=== PATIENT | female | born 1985 | race Caucasian/White ===

== ENCOUNTER 2017-11-04 05:28 | Day surgery (SDC) | payer OTHER ==
[~2017-11-04] VITALS: Ht 167.6 cm; Wt 88.0 kg
--- NOTE | ~2017-11-04 | PATH ---
[facility] [place] [address] PATHOLOGY RPT PROCEDURE Name: ADRIANA CELAYA Alysia Room #: DEP [facility].#: [id number] Admission: 11/04/17 Date of : 83 Discharge: 11/04/17 Report #: [id number] Path Case #: [id number] [facility] Accession Number: [id number] . 01 Material submitted: . PART A: LIVER BIOPSY X 3 PART B: GALLBLADDER . 01 Clinical history: . Gallstones. . 02 Diagnosis: A. Liver, needle core biopsies: - Focal macrovesicular steatosis (2 percent); no microscopic findings for steatohepatitis identified. 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 - Minimal regenerative changes. - No evidence of bile duct damage, autoimmune hepatitis or bile duct loss. . B. Gallbladder, cholecystectomy: - Mild chronic cholecystitis. - Cholelithiasis. QRQ/11/11/2017 . 02 Comment: Examination shows rare foci of macrovesicular steatosis. There is no evidence of ballooning or perisinusoidal fibrosis identified. Few portal tracts show mixed portal chronic inflammation comprised of lymphocytes and eosinophils as well as rare plasma cells. Bile duct damage, predominanace of plasma cells, lymphoid aggregates and granulomata are not identified. Special stains are performed on all blocks A1, A2 and A3. Trichrome stain shows no increase in fibrosis. Reticulin is distorted in a few areas. Iron stain is negative. PAS with and without diastase show no intracytoplasmic globules in zone 1. CD34 shows no evidence of increase in vascularity. . Findings are nonspecific and may be secondary to medication used. There is no evidence of steatohepatitis, autoimmune hepatitis, primary biliary cholangitis or sclerosing duct lesions.Clinical correlation is required with laboratory values, viral markers as well as other findings. (IUV; 11/11/17) . . 02 Electronically signed: . Zakia Allen MD, Pathologist NPI- [id number] [place] [address] PATHOLOGY RPT PROCEDURE Name: ADRIANA CELAYA Room #: DEP [facility]#: [id number] Admission: 11/04/17 Date of : 83 Discharge: 11/04/17 Report #: [id number] Path Case #: [id number] . 01 Gross description: . A. Received in formalin labeled "Adriana Celaya, liver biopsy *3" are three cylindrical red-brown soft tissue cores which range from 0.7-1.1 cm in length, and each measures 0.1 cm in diameter. The specimen is submitted entirely in cassettes A1-A3. . B. Received in formalin labeled "Adriana Celaya, gallbladder" is an intact cholecystectomy specimen which measures 8.7 x 3.3 x 2.2 cm. The serosa is pink-bal and smooth. The specimen is opened to reveal green-black velvety mucosa and an average wall thickness of 0.2 cm. Four bosselated yellow-bal calculi are present which measure in aggregate 3.3 x 2.6 x 1.4 cm, and range from 1.3-1.7 cm in greatest dimension. No polyps or masses are identified within the gallbladder. Pattern Repair Person sections of the fundus and body, as well as the cystic duct margin (inked black) are submitted in cassette B1. ([facility]; 11/05/2017) [facility] . 02 CPT . 285231, [id number] Performed at: [address], [place] [id number] MD Jeancarlos Choudhary MD Phone: [phone] Performed at: [address] [id number] MD Zakia Allen MD Phone: [phone]
--- NOTE | ~2017-11-04 | O ---
[facility] [place] [address] [place] [address] OPERATIVE REPORT Name: ADRIANA PRIETO Room #: 401-I [facility]#: [id number] Admission: 11/04/17 Attend Phys: Gama Hurtado MD Discharge: Date of : 83 Report #: [id number] THIS REPORT FOR: //name// CC: Viola Hurtado DATE OF SERVICE: 11/04/2017 PATIENT OF: Dr. Gama Hurtado, Dr. Viola Newton and Dr. Bakari Noe. PREOPERATIVE DIAGNOSES: Cholelithiasis, cholecystitis, biliary colic and abnormal liver function tests. POSTOPERATIVE DIAGNOSES: Cholelithiasis, cholecystitis, biliary colic and abnormal liver function tests. PROCEDURE: Laparoscopic cholecystectomy with three Wilber-Cut needle biopsies of the liver. SURGEON: Gama Hurtado M.D. HYPERBARIC TECHNICIAN: Bonny Zaldivar RN. ANESTHESIA: General. DESCRIPTION OF PROCEDURE: The patient was brought to the operating room and placed on the operating room table in the supine position. Sequential compression devices were in place for DVT prophylaxis. She received an appropriate preoperative dose of antibiotics. The patient underwent a general endotracheal anesthesia and the abdomen was then prepped and draped in a sterile fashion. Skin and subcutaneous tissue around the umbilicus was then infiltrated with 0.5% Marcaine. An infraumbilical transverse skin incision was then performed using #11 scalpel blade. Hemostasis obtained using electrocautery. Dissection was carried down through the subcutaneous tissue to the fascia, which was then grasped between 2 Vignesh clamps and incised with curved Zayas scissors. Peritoneum was entered and pursestring suture of 0 Vicryl was then placed in the fascia. A 12-mm disposable Darlene port was inserted through the opening and held into place with the balloon port and the pursestring suture. Pneumoperitoneum was obtained to a level of 10-15 mmHg. Laparoscope was inserted through this port. Two right upper quadrant 5-mm Surgiport as well as an upper midline 12-mm Surgiport were all inserted under direct visualization after infiltration with 0.5% Marcaine. Exploration was performed, which revealed appropriately normal-looking liver. Stomach was dilated with air and this was decompressed with an orogastric tube. The remaining portion of the [facility] [address] [place] [address] OPERATIVE REPORT Name: ADRIANA PRIETO Room #: 401-I [facility].#: [id number] Admission: 11/04/17 Attend Phys: Gama Hurtado MD Discharge: Date of : 83 Report #: [id number] exam appeared normal. The gallbladder was then grasped and retracted superiorly and several adhesions around the gallbladder was dissected free using the [place] dissector and electrocautery. Cystic duct and artery were then carefully dissected free. The cystic common bile duct junction was clearly identified. Cystic duct was then triply clipped on the common bile duct side doubly clipped on the gallbladder side and divided with the scissors. The artery was then doubly clipped on each side and divided with the scissors. The gallbladder was then dissected free from the bed using the hook electrocautery. Prior to completing the dissection, the gallbladder was retracted superiorly and the bed inspected for hemostasis, which was obtained using electrocautery and found to be intact. The gallbladder was then transected and brought out through the periumbilical port and sent as specimen to pathology. The port was returned to the abdomen. The area was copiously irrigated with warm saline solution, which was suctioned free. Using the Monopty, 3 core needle biopsies were performed, one in the left lateral segment and two in the left medial segment and sent as specimen to pathology. Hemostasis was obtained in the liver using electrocautery. After assuring hemostasis was intact, the ports were then all removed. Under direct visualization, hemostasis intact at each port site. Pneumoperitoneum was released and the periumbilical port was then also removed under direct visualization. Hemostasis intact at that port site as well. The periumbilical fascia was then closed using the 0 Vicryl pursestring suture. The skin was then closed using interrupted vertical mattress 5-0 nylon sutures. The wounds dressed with Band-Aids. The patient was then awakened from the general endotracheal anesthesia, extubated and taken to recovery room in good condition. Estimated blood loss was approximately 5 mL and the patient tolerated the procedure well. All sponge, lap and instrument counts correct times 2. <ELECTRONICALLY SIGNED> By: Gama Hurtado MD 11/04/17 1613 [id number] Gama Hurtado MD /nt
[~2017-11-04 05:28] MED LIST: ALDACTONE50 MG PO; IRON325 PO; SYNTHROID75 MCG PO; WELLBUTRIN XL300 MG PO
[2017-11-04 11:30] VITALS: BP 110/71
[2017-11-04] MEDS ORDERED: HYDROCODONE-AP1 EAC6 PO (14:57)
[2017-11-04] MEDS ORDERED: NORCO 5-325 TA1 EACH PO (15:00)
[2017-11-04 18:06] VITALS: BP 110/71
[2017-11-04 18:12] VITALS: BP 104/65; BP 110/69
[2017-11-04 18:13] VITALS: BP 99/63
== END 2017-11-04 18:25 | disposition home or self-care (01) ==
LOC: OR 05:28 → TBA 05:28 → OR 10:45 → 4N 16:05 → ENTRNSPT 18:12 → OR 18:25
DX: K80.64 Calculus of gallbladder and bile duct with chronic cholecystitis without obstruction (principal); K76.0 Fatty (change of) liver, not elsewhere classified; K75.89 Other specified inflammatory liver diseases; R94.5 Abnormal results of liver function studies; F32.9 Major depressive disorder, single episode, unspecified; F41.9 Anxiety disorder, unspecified; Z87.891 Personal history of nicotine dependence; Z98.890 Other specified postprocedural states; Z88.8 Allergy status to other drugs, medicaments and biological substances; Z79.891 Long term (current) use of opiate analgesic; Z79.899 Other long term (current) drug therapy
CPT/HCPCS: 10790; 50010; 50101; 50249; 50411; 50555; 50558; 51046; 51474; 51489; 52266; 53314; 56462; 56524; 56528; 62110; 62900; 70005